=== PATIENT | female | born 1945 | race Two or more races ===

== ENCOUNTER 2016-07-21 10:00 | Inpatient (IN) | payer OTHER ==
[~2016-07-21] VITALS: Ht 152.4 cm; Wt 83.0 kg
[2016-07-21] VITALS (12 sets, daily range): BP systolic 104–170; BP diastolic 63–90
--- NOTE | 2016-07-21 06:49 | Pre-Procedure Note/Attestation ---
Pre-Procedure Note/Attestation Complete Prior to Procedure Planned Procedure: right Procedure Narrative: rt total knee arthroplasty Indications for Procedure Pre-Operative Diagnosis: rt knee arthritis Attestation I attest that I discussed the nature of the procedure; its benefits; risks and complications; and alternatives (and the risks and benefits of such alternatives ), prior to the procedure, with the patient (or the patient's legal authorization representative). I attest that, if there was a reasonable possibility of needing a blood transfusion, the patient (or the patient's legal authorization representative) was given the [facility] standardized written summary, pursuant to the [place] Blood Safety Act ([place] Health and Safety Code # 1645, as amended). I attest that I re-evaluated the patient just prior to the surgery and that there has been no change in the patient's H&P, except as documented below: NONE RADHA UNDERWOOD July 21, 2016 06:49
[~2016-07-21 10:00] MED LIST: ceFAZolin 1gm in D5W 55ml IVP ONE; celeBREX 200mg Cap **SURGERY PATIENTS ONLY ORAL ONE; oxyCONTIN 20mg tab ORAL ONE
[2016-07-21] MEDS ORDERED: Ropivacaine 5mg/ml Vial 20ml INJ ONE (10:33)
[2016-07-21] MEDS ORDERED: Bacitracin 50000 Units Vial ONE (10:37)
[2016-07-21] MEDS ORDERED: Bupivacaine w/Epi 0.5% 30ml Vial INJ ONE (10:37)
[2016-07-21] MEDS ORDERED: Sterile Water Irrig 1000ml IRRIG ONE (11:00)
[2016-07-21] MEDS ORDERED: NS Irrig 1000ml ONE (11:00)
[2016-07-21] MEDS ORDERED: diabetes medication (11:09)
[2016-07-21] MEDS ORDERED: LISINOPRIL10 MG ORAL (11:10)
[2016-07-21] MEDS ORDERED: IBUPROFEN600 MG ORAL (11:10)
[2016-07-21] MEDS ORDERED: LR 1000ml ONE (12:00)
[2016-07-21] MEDS ORDERED: fentaNYL 100 mcg/2 mL IV ONE (12:00)
[2016-07-21] MEDS ORDERED: Midazolam 2mg/2ml Inj ONE (12:00)
[2016-07-21] MEDS ORDERED: Propofol 10mg/ml 100ml btl IV ONE (12:00)
[2016-07-21] MEDS: D5 1/2NS w/KCl 20mEq 1,000 ML IV SCH ×2 (12:02→17:37)
[2016-07-21] MEDS ORDERED: Norco 5mg/325mg tab ORAL PRN (12:15)
[2016-07-21] MEDS ORDERED: Milk of Magnesia 30ml Ud ORAL PRN (12:15)
[2016-07-21] MEDS ORDERED: LR 1000ml 1,000 ML IVLG SCH (12:29)
--- NOTE | 2016-07-21 12:29 | Anethesia Preoperative Eval ---
Anesthesia Pre-op PMH/ROS General Date of Evaluation: July 21, 2016 Time of Evaluation: 10:55 Anesthesiologist: Maureen ASA Score: ASA 2 Mallampati Score Class I : Soft palate, uvula, fauces, pillars visible Class II: Soft palate, uvula, fauces visible Class III: Soft palate, base of uvula visible Class IV: Only hard plate visible Mallampati Classification: Class II Surgeon: Aris Diagnosis: R knee DJD Surgical Procedure: R total knee arthroplasty Anesthesia History: none Social History: smoking - h/o Family History: no anesthesia problems Allergies: Coded Allergies: No Known Allergies (Unverified , 07/16/16) Medications: see eMAR Past Medical History Cardiovascular: Reports: HTN, Denies: CAD, [place], arrhythmia, other, valve dz Pulmonary: Denies: COPD, TRISTAN, asthma, other Gastrointestinal/Genitourinary: Reports: GERD - mild, Denies: CRI, ESRD, other Neurologic/Psychiatric: Denies: CVA, TIA, dementia, depression/anxiety, other Endocrine: Reports: DM - stable on pills, Denies: hypothyroidism, other, steroids HEENT: Denies: CHEVAK (L), CHEVAK (R), cataract (L), cataract (R), glaucoma, other Hematology/Immune: Reports: anemia - mild, Denies: DVT, bleeding disorder, other Musculoskeletal/Integumentary: Reports: DJD, Denies: DDD, OA, RA, edema, other Other: other - overweight PMH Narrative: as above PSxH Narrative: see chart Anesthesia Pre-op Phys. Exam Physician Exam Last Vital Signs Date Time Temp Pulse Resp B/P Pulse Ox O2 Delivery O2 Flow Rate FiO2 07/21/16 10:25 98.4 76 18 147/75 98 Room Air Constitutional: NAD Neurologic: CN 2-12 intact Cardiovascular: RRR, no M/R/G Respiratory: CTA Gastrointestinal: S/NT/ND Airway Exam Mallampati Score: Class II MO: limited Neck: stiff ROM: limited Teeth: missing Dentures: no lower, no upper Anesthesia Pre-op A/P Labs see chart Accucheck 85 at admission Studies Pre-op Studies: EKG - NSR, CXR - WNL Risk Assessment & Plan Assessment: ASA 2 Plan: SAB vs GA R femoral nerve block for postoperative pain control Status Change Before Surgery: No Pre-Antibiotics Drug: Ancef 2gr. Given Within 1 Hr of Incision: Yes Time Given: 11:56 RADHA PRICE M.D. July 21, 2016 12:29
[2016-07-21] MEDS ORDERED: Hydromorphone 0.5mg/0.5ml inj IVP PRN (12:30)
[2016-07-21] MEDS ORDERED: Midazolam 2mg/2ml Inj IVP PRN (12:30)
[2016-07-21] MEDS ORDERED: DiphenhydrAMINE 50mg/ml Inj IVP PRN (12:30)
[2016-07-21] MEDS: Docusate 100mg tablet ORAL SCH ×2 (13:00→18:00)
--- NOTE | 2016-07-21 13:56 | Brief Operative Note ---
Immediate Post Operative Note Operative Note Chief Complaint: rt knee pain Pre-op Diagnosis: rt knee arthritis Procedure: rt tka Post-op Diagnosis: same as pre-op Findings: consistent w/pre-op dx studies Surgeon: md sheridan Power Hair Clipper: david estes Anesthesiologist: md sosa Anesthesia: general Specimen: yes Complications: none Condition: stable Estimated Blood Loss: minimal Drains: none Implant(s) used?: Yes - NAVJOT Mora July 21, 2016 13:56
--- NOTE | 2016-07-21 15:07 | Immediate Post-Op Evaluation ---
Immediate Post-Op Evalulation Immediate Post-Op Evalulation Procedure: R Total knee arthroplasty Date of Evaluation: July 21, 2016 Time of Evaluation: 14:01 IV Fluids: 1800 Blood Products: none Estimated Blood Loss: 150 Urinary Output: 250 Blood Pressure Systolic: 148 Blood Pressure Diastolic: 76 Pulse Rate: 68 Respiratory Rate: 20 O2 Sat by Pulse Oximetry: 99 Temperature (Fahrenheit): 97.5 Pain Score (1-10): 2 Nausea: No Vomiting: No Complications none Patient Status: awake, patent, none Hydration Status: adequate RADHA PRICE M.D. July 21, 2016 15:07
--- NOTE | 2016-07-21 15:53 | Diagnostic Imaging Report ---
Indication: Pain 2 views of the right knee were obtained. Findings: Postop views show cemented total knee arthroplasty without any definite issues regarding alignment or positioning. Soft tissue air noted. There is no fracture. Impression: Status post total knee arthroplasty
[2016-07-21] MEDS: HYDROmorphone 1mg/ml Carpuject SUBQ PRN ×2 (17:51→21:58)
[2016-07-21] MEDS: ceFAZolin sod 1 GM in D5W 55 ML IV SCH (18:50)
--- NOTE | 2016-07-21 19:28 | General Progress Note ---
Assessment/Plan Status Narrative s/p tkr hypertenison hyperlipidmeia Assessment/Plan PT OT PERIOPERATIVE ANTIBIOTIC PORPHYALXIS PAINCONTROL FOLLOW CLOSLEY LISINOPRIL 10 DAILY HOLD SYSTOLIC LESS THAN 130 Subjective Date patient seen: July 21, 2016 Constitutional: Reports: no symptoms HEENT: Reports: no symptoms Cardiovascular: Reports: no symptoms Respiratory: Reports: no symptoms Gastrointestinal/Abdominal: Reports: no symptoms Genitourinary: Reports: no symptoms - has some pain Allergies: Coded Allergies: No Known Allergies (Unverified , 07/16/16) Objective Last 24 Hour Vital Signs Date Time Temp Pulse Resp B/P Pulse Ox O2 Delivery O2 Flow Rate FiO2 07/21/16 18:21 96.8 07/21/16 17:00 98.0 76 17 118/69 99 Nasal Cannula 2.0 07/21/16 16:00 96.8 88 17 128/75 97 Room Air 07/21/16 15:15 97.4 96 20 138/79 98 Nasal Cannula 2.0 07/21/16 15:07 68 20 99 07/21/16 15:00 83 20 156/79 97 Nasal Cannula 2.0 07/21/16 14:50 100 20 168/90 97 Nasal Cannula 2.0 07/21/16 14:35 97 20 170/90 97 Nasal Cannula 2.0 07/21/16 14:20 97 20 157/83 97 Nasal Cannula 2.0 07/21/16 14:05 88 20 162/88 100 Simple Mask 8.0 07/21/16 14:00 81 20 169/78 100 Simple Mask 8.0 07/21/16 13:55 98.6 68 20 151/75 100 Simple Mask 8.0 07/21/16 10:25 98.4 76 18 147/75 98 Room Air Height (Feet): 5 Height (Inches): 0.00 Weight (Pounds): 183 General Appearance: WD/WN EENT: PERRL/EOMI Neck: supple Cardiovascular: normal peripheral pulses, normal rate, regular rhythm, no JVD Respiratory/Chest: lungs clear Abdomen: soft Extremities: other - hemovac inplace TAMELA KEYS July 21, 2016 19:28
[2016-07-21] MEDS ORDERED: 1/2NS w/KCl 20mEq 1000ml 1,000 ML IV SCH (20:00)
[2016-07-21] MEDS: NovoLOG Insulin Flexpen SUBQ SCH (21:00)
[2016-07-21] MEDS: Enoxaparin 30mg Inj SUBQ SCH (21:00)
[2016-07-21] MEDS: oxyCONTIN 20mg tab ORAL SCH (21:36)
[2016-07-21] MEDS: Docusate 100mg cap ORAL SCH (21:40)
--- NOTE | 2016-07-21 22:39 | Operative Note - Dictated ---
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 PROCEDURE: Right total knee arthroplasty using [employer] System, size 6 femur, size E tibia, 10 mm poly insert, and a 32 mm patellar insert, all cemented. SURGEON: Chacorta Hurst M.D. DIRECTOR HEDIS: Stella Pedroza PA-C. ANESTHESIOLOGIST: Ketan Reddy M.D. ANESTHESIA: Spinal anesthesia. EBL: Less than 50 mL. TOURNIQUET TIME: 72 minutes. COMPLICATIONS: None. BRIEF HISTORY: The patient is a pleasant 70-year-old female, who has had ongoing right knee pain. She failed nonoperative treatment. After full discussion of risks and benefits of surgery including infection, bleeding, neurovascular complication, possibility of loss of motion, possibility of DVT, PEs, continued pain despite surgery, and other complication that may arise, as well as the infection needing resection arthroplasty, she opted for surgical treatment as described above. OPERATIVE PROCEDURE: The patient was brought to the operating table and was placed supine. All pressure points were well padded. Spinal anesthesia was induced and the right leg was prepped and draped using sterile fashion. The right leg was exsanguinated. Tourniquet was inflated to 275 mmHg. Standard anterior approach to the knee was undertaken and medial parapatellar arthrotomy was performed. The patella was everted. A medial release on the deep fibers of the MCL was performed. The knee was flexed and ACL and PCL were released. The intramedullary access into the femur was obtained and intramedullary guide was placed and a 5-degree valgus cut for the distal femur was made. This was a standard cut. At this point, using a sizing block, the sizing was made and size E appeared to be the right size. The knee was placed in about 3 degrees of external rotation using transepicondylar access and the anterior posterior and chamfer cuts were performed without any complications. At this point, a trial femur was applied and range of motion was checked and there appeared to be full extension and there was full flexion. There was excellent ligament stability. At this point, care was given to the tibia. The trial component of femur was removed. Appropriate retractors including posterior and mediolateral retractors were placed in. The extramedullary guide was placed and using anterior tibial crest as a guide, the alignment was checked. The posterior slope was re-created, anatomical axis was re-created and 10 mm was taken off the least involved side which was the medial side. This provided excellent cut of the tibia. At this point, the flexion-extension gap was checked with 10 mm and appeared to be perfect. At this point, sizing of the tibia was performed and size E appeared to be the right size. Size E trial was then placed and was pinned and the center stem was then punched without any complication. Once this was completed, the femoral component and tibial component with a 10 mm poly was placed in and knee was placed through the range of motion and ligamentous stability was checked and was excellent. At this point, care was given to the patella. The patella was everted. This measured 22 mm. At this point, 9 mm was taken off the patella to leave about 13 mm patella at the end. At this point, sizing was performed and 32 mm patella appeared to be the right size. Therefore, 32 mm peg holes were drilled. A trial patella was then applied, and at this point, all trial components were placed through range of motion and stability was checked. There was excellent patellofemoral tracking. There was 0 to 130 degrees range of motion and there was excellent stability at 0 to 30 degrees, 45 degrees, and 90 degrees of flexion with varus valgus stability as well as posterior and anterior stability. At this point, all trial components were removed. The knee was thoroughly irrigated using copious amount of fluid. The entry point into the femur was then plugged with the bone plugs. The cement was mixed and the tibial component, femoral component, and patella components were all cemented without any complication. All excess cement was removed and time was allowed to compress the cement under compression using a [address]. At this point, once cementing was completed and all excess cement was removed, trialing was performed again with a 10 mm poly trial with the actual femoral and tibial and patellar component and there was excellent range of motion and excellent stability as described. At this point, the trial poly was then removed and the knee was thoroughly irrigated using Simpulse irrigation. All excess cement was removed and the actual 10 mm poly was locked in without any complication. At this point, the tourniquet was deflated and all bleeders were stopped. The extensor mechanism was closed using #1 Vicryl suture, subcutaneous tissue was closed using 2-0 Vicryl suture, the skin was closed using 3-0 Monocryl suture, and Dermabond was applied and Steri-Strips were applied. The patient was taken to the recovery room in stable condition. Sterile dressing was applied prior to breaking the sterile field. All instrument counts and lap counts were correct. Time-outs were performed before the procedure and preop antibiotic was given prior to incision. Chacorta Hurst M.D. DR: DAVID JOB#: [id number] CC:
[2016-07-21] MEDS: 1/2NS w/KCl 20mEq 1000ml 1,000 ML IV SCH (23:04)
[2016-07-22] MEDS: ceFAZolin sod 1 GM in D5W 55 ML IV SCH (03:00)
[2016-07-22 04:00] VITALS: BP 120/59
[2016-07-22] MEDS: NovoLOG Insulin Flexpen SUBQ SCH ×4 (06:07→20:43)
[2016-07-22] MEDS: HYDROmorphone 1mg/ml Carpuject SUBQ PRN (06:08)
[2016-07-22 06:11] LABS: BASOPHILS % (AUTO) 0.4 % (0.0-2.0); LYMPHOCYTES % (AUTO) 11.5 % (20.0-45.0); MEAN CORPUSCULAR HEMOGLOBIN 30.6 PG (27.0-31.0); MEAN CORPUSCULAR HGB CONC 33.3 G/DL (32.0-36.0); MEAN CORPUSCULAR VOLUME 92 FL (80-99); MEAN PLATELET VOLUME 8.5 FL (6.5-10.1); NEUTROPHILS % (AUTO) 81.1 % (45.0-75.0); PLATELET COUNT 233 K/UL (150-450); RED BLOOD COUNT 3.13 M/UL (4.20-5.40); WHITE BLOOD COUNT 12.7 K/UL (4.8-10.8)
[2016-07-22 07:56] VITALS: BP 101/59
--- NOTE | 2016-07-22 08:23 | Orthopedic Progress Note ---
Orthopedic - Progress Note Subjective Symptoms: c/o post-op knee pain, other - nausea- unable to eat much Objective Vital Signs Laboratory Tests Test 07/22/16 05:25 White Blood Count 12.7 K/UL (4.8-10.8) H Red Blood Count 3.13 M/UL (4.20-5.40) L Hemoglobin 9.6 G/DL (12.0-16.0) L Hematocrit 28.8 % (37.0-47.0) L Mean Corpuscular Volume 92 FL (80-99) Mean Corpuscular Hemoglobin 30.6 PG (27.0-31.0) Mean Corpuscular Hemoglobin Concent 33.3 G/DL (32.0-36.0) Red Cell Distribution Width 13.0 % (11.6-14.8) Platelet Count 233 K/UL (150-450) Mean Platelet Volume 8.5 FL (6.5-10.1) Neutrophils (%) (Auto) 81.1 % (45.0-75.0) H Lymphocytes (%) (Auto) 11.5 % (20.0-45.0) L Monocytes (%) (Auto) 7.0 % (1.0-10.0) Eosinophils (%) (Auto) 0.0 % (0.0-3.0) Basophils (%) (Auto) 0.4 % (0.0-2.0) Last 24 Hour Vital Signs Date Time Temp Pulse Resp B/P Pulse Ox O2 Delivery O2 Flow Rate FiO2 07/22/16 07:56 98.8 80 19 101/59 96 Nasal Cannula 07/22/16 06:40 98.1 07/22/16 04:00 98.1 79 20 120/59 95 Nasal Cannula 2.0 07/21/16 23:59 98.1 74 20 104/63 97 Nasal Cannula 2.0 07/21/16 17:00 98.0 76 17 118/69 99 Nasal Cannula 2.0 07/21/16 16:00 96.8 88 17 128/75 97 Room Air 07/21/16 15:15 97.4 96 20 138/79 98 Nasal Cannula 2.0 07/21/16 15:07 68 20 99 07/21/16 15:00 83 20 156/79 97 Nasal Cannula 2.0 07/21/16 14:50 100 20 168/90 97 Nasal Cannula 2.0 07/21/16 14:35 97 20 170/90 97 Nasal Cannula 2.0 07/21/16 14:20 97 20 157/83 97 Nasal Cannula 2.0 07/21/16 14:05 88 20 162/88 100 Simple Mask 8.0 07/21/16 14:00 81 20 169/78 100 Simple Mask 8.0 07/21/16 13:55 98.6 68 20 151/75 100 Simple Mask 8.0 07/21/16 10:25 98.4 76 18 147/75 98 Room Air I&O Intake and Output 07/21/16 07/22/16 19:00 07:00 Intake Total 2232.5 ml 1102.5 ml Output Total 950 ml 725 ml Balance 1282.5 ml 377.5 ml Intake Oral 120 ml 0 ml IV Total 2112.5 ml 1102.5 ml Output Urine Total 800 ml 525 ml Emesis 200 ml Estimated Blood Loss 150 ml # Voids 1 Wound: clean, dry, intact Drains: none Neuro Status: normal Vascular Status: normal Additional Comments Xray reviewed: excellent Assessment Post-op Diagnosis POD 1 Procedure Performed rt tka Plan Plan: PT, pain management, discharge plan - likely to SNF on Wednesday, other - advance diet as tolerated. anti-emetics ordered NAVJOT COOK July 22, 2016 08:23
[2016-07-22] MEDS: Lisinopril 10mg tab ORAL SCH (08:41)
[2016-07-22] MEDS: Docusate 100mg cap ORAL SCH ×3 (08:42→17:14)
[2016-07-22] MEDS: celeBREX 200mg Cap **SURGERY PATIENTS ONLY ORAL SCH (08:42)
[2016-07-22] MEDS: oxyCONTIN 20mg tab ORAL SCH ×2 (08:42→20:33)
[2016-07-22] MEDS: Enoxaparin 30mg Inj SUBQ SCH ×2 (08:48→20:43)
--- NOTE | 2016-07-22 09:04 | 48 Hour Post Anesthesia Eval ---
Post Anesthesia Evaluation Procedure: R Total knee arthroplasty Date of Evaluation: July 22, 2016 Time of Evaluation: 06:50 Blood Pressure Systolic: 120 0: 59 Pulse Rate: 79 Respiratory Rate: 20 Temperature (Fahrenheit): 98.1 O2 Sat by Pulse Oximetry: 95 Airway: patent Nausea: No Vomiting: No Pain Intensity: 2 Hydration Status: adequate Cardiopulmonary Status: at baseline Mental Status/LOC: patient returned to baseline Post-Anesthesia Complications: 0 Follow-up care needed: N/A - further care as per primary team JEWELL YA M.D. July 22, 2016 09:04
[2016-07-22] MEDS: Metoclopramide 10mg/2ml Inj IVP SCH ×3 (10:47→20:33)
[2016-07-22] MEDS: 1/2NS w/KCl 20mEq 1000ml 1,000 ML IV SCH (11:04)
[2016-07-22 12:08] VITALS: BP 109/71
[2016-07-22 16:08] VITALS: BP 121/72
--- NOTE | 2016-07-22 18:16 | General Progress Note ---
Assessment/Plan Assessment/Plan s/p tottal knee replacmetn hypertenison dioabetes obesity post up nausea pt ot dvt prophyalxis iv fluid as she has limited po intake decresae pain medicaiotn and follow Subjective Date patient seen: July 22, 2016 Time patient seen: 18:14 Constitutional: Reports: no symptoms HEENT: Reports: no symptoms Cardiovascular: Reports: no symptoms Respiratory: Reports: no symptoms Gastrointestinal/Abdominal: Reports: no symptoms, other - has been nauseated adn medicaitno do not work well Allergies: Coded Allergies: No Known Allergies (Unverified , 07/16/16) Subjective has had nausea she is more worried about nause anad vomiting than pain Objective Last 24 Hour Vital Signs Date Time Temp Pulse Resp B/P Pulse Ox O2 Delivery O2 Flow Rate FiO2 07/22/16 17:42 98.2 07/22/16 16:08 98.2 87 19 121/72 91 Nasal Cannula 07/22/16 12:08 98.4 89 21 109/71 92 Nasal Cannula 07/22/16 09:04 79 20 95 07/22/16 08:41 101/57 07/22/16 07:56 98.8 80 19 101/59 96 Nasal Cannula 07/22/16 06:40 98.1 07/22/16 04:00 98.1 79 20 120/59 95 Nasal Cannula 2.0 07/21/16 23:59 98.1 74 20 104/63 97 Nasal Cannula 2.0 Intake and Output 07/21/16 07/22/16 19:00 07:00 Intake Total 2232.5 ml 1102.5 ml Output Total 950 ml 725 ml Balance 1282.5 ml 377.5 ml Intake Oral 120 ml 0 ml IV Total 2112.5 ml 1102.5 ml Output Urine Total 800 ml 525 ml Emesis 200 ml Estimated Blood Loss 150 ml # Voids 1 Laboratory Tests 07/22/16 05:25: White Blood Count 12.7H, Red Blood Count 3.13L, Hemoglobin 9.6L, Hematocrit 28.8L, Mean Corpuscular Volume 92, Mean Corpuscular Hemoglobin 30.6, Mean Corpuscular Hemoglobin Concent 33.3, Red Cell Distribution Width 13.0, Platelet Count 233, Mean Platelet Volume 8.5, Neutrophils (%) (Auto) 81.1H, Lymphocytes ( %) (Auto) 11.5L, Monocytes (%) (Auto) 7.0, Eosinophils (%) (Auto) 0.0, Basophils (%) (Auto) 0.4 Height (Feet): 5 Height (Inches): 0.00 Weight (Pounds): 183 General Appearance: WD/WN EENT: PERRL/EOMI Neck: non-tender Cardiovascular: normal rate, regular rhythm Respiratory/Chest: lungs clear Abdomen: other - soft non tender there is no rebound guarding or rigiditry TAMELA KEYS July 22, 2016 18:16
[2016-07-22 20:00] VITALS: BP 107/72
[2016-07-23] VITALS: BP 109/64
[2016-07-23] MEDS: 1/2NS w/KCl 20mEq 1000ml 1,000 ML IV SCH ×2 (00:10→13:00)
[2016-07-23] MEDS: Famotidine 20 MG/ 2ML VIAL IVP SCH ×3 (02:57→20:21)
[2016-07-23 04:00] VITALS: BP 135/78
[2016-07-23] MEDS: NovoLOG Insulin Flexpen SUBQ SCH ×4 (06:30→20:25)
[2016-07-23] MEDS: Norco 7.5mg/325mg tab ORAL PRN (06:48)
[2016-07-23 07:42] VITALS: BP 131/63
--- NOTE | 2016-07-23 07:59 | Orthopedic Progress Note ---
Orthopedic - Progress Note Subjective Symptoms: c/o post-op knee pain Additional Comments Walking with PT. Doing well. Objective Vital Signs Last 24 Hour Vital Signs Date Time Temp Pulse Resp B/P Pulse Ox O2 Delivery O2 Flow Rate FiO2 07/23/16 07:42 98.4 87 20 131/63 94 Nasal Cannula 07/23/16 04:00 98.2 112 19 135/78 100 Room Air 07/23/16 00:00 98.1 116 19 109/64 100 Room Air 07/22/16 20:00 98.7 95 19 107/72 100 Nasal Cannula 07/22/16 17:42 98.2 07/22/16 16:08 98.2 87 19 121/72 91 Nasal Cannula 07/22/16 12:08 98.4 89 21 109/71 92 Nasal Cannula 07/22/16 09:04 79 20 95 07/22/16 08:41 101/57 I&O Intake and Output 07/22/16 07/23/16 19:00 07:00 Intake Total 1100 ml 450 ml Output Total 350 ml 1000 ml Balance 750 ml -550 ml Intake Oral 200 ml IV Total 900 ml 450 ml Output Urine Total 200 ml 1000 ml Emesis 150 ml Wound: clean, dry, intact Drains: none Neuro Status: normal Assessment Post-op Diagnosis s/p TKA doing well Plan Plan: PT, pain management, discharge to home Additional Comments Will discharge patient home tomorrow with home health RADHA UNDERWOOD July 23, 2016 07:59
[2016-07-23 09:32] LABS: BASOPHILS % (AUTO) 0.4 % (0.0-2.0); EOSINOPHILS % (AUTO) 0.1 % (0.0-3.0); LYMPHOCYTES % (AUTO) 12.8 % (20.0-45.0); MEAN CORPUSCULAR HEMOGLOBIN 32.6 PG (27.0-31.0); MEAN CORPUSCULAR HGB CONC 34.5 G/DL (32.0-36.0); MEAN CORPUSCULAR VOLUME 95 FL (80-99); MEAN PLATELET VOLUME 7.3 FL (6.5-10.1); MONOCYTES % (AUTO) 8.3 % (1.0-10.0); NEUTROPHILS % (AUTO) 78.5 % (45.0-75.0); PLATELET COUNT 239 K/UL (150-450); RED BLOOD COUNT 2.97 M/UL (4.20-5.40); RED CELL DISTRIBUTION WIDTH 13.4 % (11.6-14.8); WHITE BLOOD COUNT 15.7 K/UL (4.8-10.8)
[2016-07-23] MEDS: oxyCONTIN 20mg tab ORAL SCH ×2 (09:47→20:21)
[2016-07-23] MEDS: Lisinopril 10mg tab ORAL SCH (09:47)
[2016-07-23] MEDS: celeBREX 200mg Cap **SURGERY PATIENTS ONLY ORAL SCH (09:48)
[2016-07-23] MEDS: Docusate 100mg cap ORAL SCH ×3 (09:48→17:55)
[2016-07-23] MEDS: Enoxaparin 30mg Inj SUBQ SCH ×2 (09:51→20:22)
[2016-07-23 12:00] VITALS: BP 114/55
--- NOTE | 2016-07-23 14:23 | General Progress Note ---
Assessment/Plan Assessment/Plan s/p tottal knee replacmetn hypertenison diabetes obesity post up nausea doing better given zantac adn zodale willfolljodyo PT OT DVT PROPHYALXIS MONITOR BLOO DSUGAR Subjective Date patient seen: July 23, 2016 Time patient seen: 14:19 Constitutional: Reports: no symptoms HEENT: Reports: no symptoms Respiratory: Reports: no symptoms Gastrointestinal/Abdominal: Reports: other - satill nauseated no vomiting Allergies: Coded Allergies: No Known Allergies (Unverified , 07/16/16) Subjective better than yesterday Objective Last 24 Hour Vital Signs Date Time Temp Pulse Resp B/P Pulse Ox O2 Delivery O2 Flow Rate FiO2 07/23/16 12:00 97.3 85 21 114/55 94 Room Air 07/23/16 10:46 98.4 07/23/16 09:47 131/63 07/23/16 07:47 98.4 07/23/16 07:42 98.4 87 20 131/63 94 Nasal Cannula 07/23/16 04:00 98.2 112 19 135/78 100 Room Air 07/23/16 00:00 98.1 116 19 109/64 100 Room Air 07/22/16 20:00 98.7 95 19 107/72 100 Nasal Cannula 07/22/16 17:42 98.2 07/22/16 16:08 98.2 87 19 121/72 91 Nasal Cannula Intake and Output 07/22/16 07/23/16 19:00 07:00 Intake Total 1100 ml 525 ml Output Total 350 ml 1000 ml Balance 750 ml -475 ml Intake Oral 200 ml IV Total 900 ml 525 ml Output Urine Total 200 ml 1000 ml Emesis 150 ml Laboratory Tests 07/23/16 08:45: White Blood Count 15.7H, Red Blood Count 2.97L, Hemoglobin 9.7L, Hematocrit 28.1L, Mean Corpuscular Volume 95, Mean Corpuscular Hemoglobin 32.6H, Mean Corpuscular Hemoglobin Concent 34.5, Red Cell Distribution Width 13.4, Platelet Count 239, Mean Platelet Volume 7.3, Neutrophils (%) (Auto) 78.5H, Lymphocytes ( %) (Auto) 12.8L, Monocytes (%) (Auto) 8.3, Eosinophils (%) (Auto) 0.1, Basophils (%) (Auto) 0.4 Height (Feet): 5 Height (Inches): 0.00 Weight (Pounds): 183 General Appearance: WD/WN EENT: PERRL/EOMI Neck: non-tender Cardiovascular: normal rate, no JVD Respiratory/Chest: lungs clear Abdomen: non tender, soft TAMELA KEYS July 23, 2016 14:23
[2016-07-23] MEDS ORDERED: Tubing IV Secondary IV ONE (15:10)
[2016-07-23 16:37] VITALS: BP 125/66
[2016-07-23 20:00] VITALS: BP 139/78
[2016-07-24] MEDS: Norco 7.5mg/325mg tab ORAL PRN ×2 (00:24→08:30)
[2016-07-24] MEDS: 1/2NS w/KCl 20mEq 1000ml 1,000 ML IV SCH (02:50)
[2016-07-24 04:00] VITALS: BP 133/70
[2016-07-24] MEDS ORDERED: 1/2NS w/KCl 20mEq 1000ml 1,000 ML IV SCH (04:15)
[2016-07-24] MEDS: NovoLOG Insulin Flexpen SUBQ SCH ×2 (06:16→11:30)
[2016-07-24 07:21] LABS: BASOPHILS % (AUTO) 0.7 % (0.0-2.0); MEAN CORPUSCULAR HEMOGLOBIN 29.9 PG (27.0-31.0); MEAN CORPUSCULAR HGB CONC 32.4 G/DL (32.0-36.0); MEAN CORPUSCULAR VOLUME 92 FL (80-99); MEAN PLATELET VOLUME 7.7 FL (6.5-10.1); MONOCYTES % (AUTO) 8.9 % (1.0-10.0); NEUTROPHILS % (AUTO) 64.4 % (45.0-75.0); PLATELET COUNT 209 K/UL (150-450); RED BLOOD COUNT 2.87 M/UL (4.20-5.40); RED CELL DISTRIBUTION WIDTH 13.4 % (11.6-14.8)
[2016-07-24 08:00] VITALS: BP 153/71
[2016-07-24] MEDS: celeBREX 200mg Cap **SURGERY PATIENTS ONLY ORAL SCH (08:29)
[2016-07-24] MEDS: Lisinopril 10mg tab ORAL SCH (08:30)
--- NOTE | 2016-07-24 08:35 | Orthopedic Progress Note ---
Orthopedic - Progress Note Subjective Symptoms: other - walking with PT. still complaining of nausea. c/o dizzyness today. hbg dropped Objective Vital Signs Laboratory Tests Test 07/23/16 08:45 07/24/16 06:00 White Blood Count 15.7 K/UL (4.8-10.8) H 10.0 K/UL (4.8-10.8) Red Blood Count 2.97 M/UL (4.20-5.40) L 2.87 M/UL (4.20-5.40) L Hemoglobin 9.7 G/DL (12.0-16.0) L 8.6 G/DL (12.0-16.0) L Hematocrit 28.1 % (37.0-47.0) L 26.5 % (37.0-47.0) L Mean Corpuscular Volume 95 FL (80-99) 92 FL (80-99) Mean Corpuscular Hemoglobin 32.6 PG (27.0-31.0) H 29.9 PG (27.0-31.0) Mean Corpuscular Hemoglobin Concent 34.5 G/DL (32.0-36.0) 32.4 G/DL (32.0-36.0) Red Cell Distribution Width 13.4 % (11.6-14.8) 13.4 % (11.6-14.8) Platelet Count 239 K/UL (150-450) 209 K/UL (150-450) Mean Platelet Volume 7.3 FL (6.5-10.1) 7.7 FL (6.5-10.1) Neutrophils (%) (Auto) 78.5 % (45.0-75.0) H 64.4 % (45.0-75.0) Lymphocytes (%) (Auto) 12.8 % (20.0-45.0) L 24.0 % (20.0-45.0) Monocytes (%) (Auto) 8.3 % (1.0-10.0) 8.9 % (1.0-10.0) Eosinophils (%) (Auto) 0.1 % (0.0-3.0) 2.0 % (0.0-3.0) Basophils (%) (Auto) 0.4 % (0.0-2.0) 0.7 % (0.0-2.0) Last 24 Hour Vital Signs Date Time Temp Pulse Resp B/P Pulse Ox O2 Delivery O2 Flow Rate FiO2 07/24/16 04:00 98.1 83 18 133/70 94 Room Air 07/23/16 20:00 98.1 87 18 139/78 97 Room Air 07/23/16 18:54 98.1 07/23/16 16:37 98.1 81 20 125/66 96 Room Air 07/23/16 12:00 97.3 85 21 114/55 94 Room Air 07/23/16 09:47 131/63 I&O Intake and Output 07/23/16 07/24/16 19:00 07:00 Intake Total 1425 ml 240 ml Output Total 300 ml Balance 1425 ml -60 ml Intake Oral 600 ml 240 ml IV Total 825 ml Output Urine Total 300 ml # Voids 2 # Bowel Movements 1 Wound: clean, dry, intact Drains: none Neuro Status: normal Vascular Status: normal Assessment Post-op Diagnosis POD 3 Procedure Performed rt tka Plan Plan: discharge plan - PT rec SNF but not approved by swaging machine adjuster. s/w case management who communicated recommendations to swaging machine adjuster- only home health approved. , discharge to home - later today after transfusion , other - 1 unit blood ordered due to drop in HGB and dizzyness. CBC ordered after transfusion. NAVJOT COOK July 24, 2016 08:35
[2016-07-24] MEDS: Famotidine 20 MG/ 2ML VIAL IVP SCH (08:40)
[2016-07-24] MEDS: Enoxaparin 30mg Inj SUBQ SCH (08:41)
[2016-07-24] MEDS: Docusate 100mg cap ORAL SCH ×2 (08:41→12:49)
[2016-07-24 09:56] LABS: EOSINOPHILS % (AUTO) 1.6 % (0.0-3.0); LYMPHOCYTES % (AUTO) 16.8 % (20.0-45.0); MEAN CORPUSCULAR HGB CONC 32.7 G/DL (32.0-36.0); MEAN CORPUSCULAR VOLUME 92 FL (80-99); MEAN PLATELET VOLUME 7.9 FL (6.5-10.1); MONOCYTES % (AUTO) 7.8 % (1.0-10.0); NEUTROPHILS % (AUTO) 72.8 % (45.0-75.0); PLATELET COUNT 227 K/UL (150-450); RED BLOOD COUNT 2.98 M/UL (4.20-5.40); RED CELL DISTRIBUTION WIDTH 13.2 % (11.6-14.8); WHITE BLOOD COUNT 10.8 K/UL (4.8-10.8)
[2016-07-24 12:00] VITALS: BP 139/83
--- NOTE | 2016-07-24 23:08 | Discharge Summary 2 SIG ---
DATE OF ADMISSION: 07/21/2016 DATE OF DISCHARGE: 07/24/2016 HOSPITAL COURSE: She was admitted following a right total knee arthroplasty. She was followed along by Dr. Isidoro Fields and was stable for discharge on 07/24/2016 for home with home care. DISCHARGE INSTRUCTIONS: The patient has all prescriptions and DME and equipment and will see us in the office for outpatient followup in 2 week's time. She can continue to be weightbearing as tolerated and she should use Lovenox for full 14 days postop. Chacorta Hurst M.D. I have been assigned to dictate discharge summary on this account and I was not involved in the patient's management. Delbert Chapman DR: YAYO JOB#: [id number] CC:
== END 2016-07-24 16:00 | disposition home health service (06) | DRG 470 ==
LOC: SDSOVERFLO 10:00 → 3E 15:26
PROC: 0SRC0J9 Replacement of Right Knee Joint with Synthetic Substitute, Cemented, Open Approach (ICD-10-PCS; principal; 2016-07-21 11:00)
PROC: 30233N1 Transfusion of Nonautologous Red Blood Cells into Peripheral Vein, Percutaneous Approach (ICD-10-PCS; 2016-07-24)
DX: M17.11 Unilateral primary osteoarthritis, right knee (principal); I10 Essential (primary) hypertension; E78.5 Hyperlipidemia, unspecified; R73.03 Prediabetes; E66.9 Obesity, unspecified; R11.0 Nausea; R42 Dizziness and giddiness
CPT/HCPCS: 36415; 82962; 85025; 86850; 86900; 86901; 86920; 87081; 94003; 94150; J1815; J2250; J2405; J2765